=== PATIENT | female | born 1975 | race Two or more races ===

== ENCOUNTER 2017-02-16 16:04 | Emergency (ER) | payer OTHER ==
[2017-02-16 16:14] VITALS: O2SAT 98
[2017-02-16 16:30] LABS: COLOR PALE YELLOW; LEUKOCYTE ESTERASE,URINE 3+ (NEGATIVE); NITRITE,URINE NEGATIVE (NEGATIVE)
[2017-02-16 16:44] LABS: BACTERIA TRACE /hpf (NONE SEEN); WBC,URINE 50-182 /hpf (0-3)
--- NOTE | 2017-02-16 17:06 | EDPHY ---
H & P Stated Complaint: Suprapubic discomfort since starting period~2wks ago;PCP nima yesterday Time Seen by Provider: 02/16/17 16:47 HPI/ROS: CHIEF COMPLAINT: Suprapubic pain HISTORY OF PRESENT ILLNESS: This patient is a 41 year old female complaining of suprapubic pain onset three weeks ago. She was evaluated yesterday by her primary care physician, who did blood tests and vaginal swab testing. The pain is moderate and has worsened in the last three days. She endorses nausea. She denies dysuria, urinary frequency , vomiting, diarrhea. She denies abnormal vaginal discharge. Her last menstrual period was three weeks ago. She has remote history of urinary tract infection, and she had fever and back pain at that time, not similar to today. REVIEW OF SYSTEMS: A 10 point review of systems was performed and is negative with the exception of the elements mentioned in the history of present illness. - Personal History LMP (Females 10-55): 15-21 Days Ago Current Tetanus Diphtheria and Acellular Pertussis (TDAP): Yes - Medical/Surgical History PMH: Denies. Other PMH: healthy - Social History Smoking Status: Never smoked Additional Social History: . Lives in [place]. Works at [employer]. Nonsmoker. - Physical Exam Exam: General Appearance: Alert, no distress Eyes: Pupils equal and round, no conjunctival pallor or injection ENT, Mouth: Mucous membranes moist Neck: Normal inspection Respiratory: Lungs are clear to auscultation Cardiovascular: Regular rate and rhythm Gastrointestinal: Suprapubic and right lower quadrant tenderness. Abdomen is soft. Neurological: A&O, nonfocal, normal gait Skin: Warm and dry, no rash Extremities: Nontender, no pedal edema Psychiatric: Mood and affect normal Constitutional: Initial Vital Signs Temperature (C) 37 C 02/16/17 16:05 Heart Rate 68 02/16/17 16:05 Respiratory Rate 16 02/16/17 16:05 Blood Pressure 124/80 H 02/16/17 16:05 O2 Sat (%) 98 02/16/17 16:05 O2 Delivery Mode Room Air Allergies/Adverse Reactions: No Known Allergies Allergy (Verified 02/16/17 16:10) Home Medications: Medication Instructions Recorded Cefdinir [Omnicef (*)] 300 mg PO BID #20 cap 02/16/17 Medical Decision Making - Diagnostics Imaging Results: Abdomen CT 02/16/17 17:45 Impression: 1. Normal CT appearance of the appendix. 2. Suspect right kidney anterolateral lower pole focal pyelonephritis. Repeat CT imaging with contrast in 8-12 weeks is suggested to assure resolution. There is also inflammatory enhancement of the renal pelves and ureters (right greater than left), and urinary bladder wall thickening suggests a cystitis. Findings were discussed with LYNN DURANT MD at 19:18, on 02/16/2017. She indicated that her urinalysis was positive for increased white blood cells. Imaging: Discussed imaging studies w/ body recall instructor Radiologist ED Course/Re-evaluation: 41 year old female presents with three week history of suprapubic pain. Exam reveals suprapubic tenderness. Plan for labs including CBC, UA, and UHCG. UA shows evidence of UTI. Due to the patient's pain and tenderness, plan for CT abdomen/pelvis. 19:[address] Rondon, radiologist. CT shows pyelonephritis. CT results discussed with the patient. Rocephin 1 g IV given. Plan to discharge home in good condition with prescription for Omnicef. Follow up and return precautions discussed. She will follow up for a repeat abdominal CT with contrast to reevaluate her kidneys in 8-12 weeks. The patient is comfortable with this plan. Differential Diagnosis: includes though not limited to appendicitis, PID, ectopic , acute cystitis. - Data Points Laboratory Results: Laboratory Results 02/16/17 18:11 Medications Given: Discontinued Medications Ceftriaxone Sodium/Dextrose (Rocephin 1 Gm (Premix)) 50 mls @ 100 mls/hr IV EDNOW ONE PRN Reason: Protocol Stop: 02/16/17 19:49 Last Admin: 02/16/17 19:32 Dose: 50 mls Departure - Departure Disposition: Home, Routine, Self-Care Clinical Impression: Acute pyelonephritis Condition: Good Instructions: Urinary Tract Infection in Women (ED), Kidney Infection (ED) Additional Instructions: 1. Follow up with your primary care physician in 2-3 days. Follow up for a repeat CT scan with contrast in 8-12 weeks to re-check your kidneys. 2. Take your Omnicef as prescribed. It is important to finish your entire course of antibiotics even if you are feeling better. 3. Return to the emergency department for fever, worsening pain, vomiting, or other worsening of condition. Referrals: Palak Sparks MD [Primary Care Provider] - As per Instructions Stand Alone Forms: Work Excuse Prescriptions: Cefdinir [Omnicef (*)] 300 mg PO BID #20 cap Report Scribed for: Lynn Durant Report Scribed by: Ana Paula Rocha Date of Report: 02/16/17 Time of Report: 17:41 Physician Review and Approval Statement: 02/16/17 17:41 Portions of this note were transcribed by a director of graduate medical education. I personally performed a history, physical exam, medical decision making, and confirmed accuracy of information the transcribed note.
[2017-02-16 18:20] LABS: % IMMATURE GRANULYOCYTES 0.3 % (0.0-1.1); ABSOLUTE IMMATURE GRANULOCYTES 0.02 10^3/uL (0.00-0.10); ADD DIFF? NO; ADD MORPH? NO; ADD SCAN? NO; ATYPICAL LYMPHOCYTE FLAG 10 (0-99); FRAGMENT RBC FLAG 0 (0-99); HEMATOCRIT 41.2 % (38.0-47.0); HEMOGLOBIN 13.7 g/dL (12.6-16.3); LEFT SHIFT FLG 0 (0-99); LIPEMIA HEMOLYSIS FLAG 80 (0-99); MEAN CELL HEMOGLOBIN 29.7 pg (27.9-34.1); MEAN CELL HEMOGLOBIN CONCENTR. 33.3 g/dL (32.4-36.7); MEAN CELL VOLUME 89.4 fL (81.5-99.8); MEAN PLATELET VOLUME 9.8 fL (8.7-11.7); PLATELET CLUMPS FLAG 0 (0-99); PLATELET COUNT 246 10^3/uL (150-400); RED BLOOD CELL COUNT 4.61 10^6/uL (4.18-5.33)
[2017-02-16] MEDS ORDERED: IOPAMIDOL (ISOVUE-300) 100 ML BTL ONE (18:28)
[2017-02-16 20:45] VITALS: BP 114/65; PULSE 78; RESP 18; TEMP 98.2
== END 2017-02-16 20:00 | disposition home or self-care (01) ==
DX: N10 Acute pyelonephritis (principal); B96.89 Other specified bacterial agents as the cause of diseases classified elsewhere
CPT/HCPCS: 96365; J0696; Q9967